=== PATIENT | male | born 1975 | race Caucasian/White ===

== ENCOUNTER 2020-02-27 22:29 | Emergency (ER) | payer OTHER ==
[~2020-02-27 22:29] MED LIST: ACETAMINOPHEN500 M1 PO; ADMELOG100 UNIT/1 SC; ASPIRIN325 MG PO; BACLOFEN 20MG T20 MG PO; CHLORTHALIDONE25 MG PO; CIPRO500 MG PO; FENOFIBRATE200 MG PO; GABAPENTIN600 MG PO; HUMALOG 75100 UNIT/M SC; HYDRALAZINE25 MG PO; HYDROCODON-ACE1 EAC2 PO; KEFLEX250 MG PO; LASIX40 MG PO; LIPITOR40 MG PO; LOPRESSOR50 MG PO; LOVAZA1 GM PO; NAPROXEN500 MG PO; NEURONTIN300 MG PO; NORCO 5-325 TA1 EACH PO; OCUFLOX5 ML EARRT; PEPCID AC20 MG PO; PERCOCET 10/321 EACH PO; PERCOCET 5-3251 EACH PO; PHENERGAN25 M1 PO; PLAVIX75 MG PO; PRINIVIL20 MG PO; PROTONIX 40MG T40 MG PO; TETRACYCLINE H500 MG PO; TRESIBA FL200 UNIT/1 SC; TRESIBA100 UNIT/1 SC; TRULICITY1.5 MG/0.5 SC; VITAMIN D3125 MC1 PO; ZOFRAN4 M1 PO; ZOFRAN8 MG PO
[2020-02-28 00:12] LABS: EOSINOPHIL 2.2 % (0-5); HCT 29.2 % (42.0-52.0); MCH 29.1 pg (25.0-31.0); MCHC 30.8 g/dL (32.0-36.0); MCV 94.5 fL (78.0-100.0); MONOCYTE 8.6 % (0-12); MPV 9.2 fL (6.0-9.5); NEUTROPHIL 65.9 % (41-80); NRBC 0; PLT 234 K/uL (150-400); RBC 3.09 M/uL (4.70-6.00); RDW 17.7 % (11.5-14.0); WBC 3.1 K/uL (4.0-10.5)
[2020-02-28 00:38] LABS: ALBUMIN 2.5 g/dL (3.4-5.0); BILIRUBIN - TOTAL 0.3 mg/dL (0.2-1.0); BUN/CREAT RATIO (CALC) 19.7 RATIO; CREATININE 1.32 mg/dL (0.67-1.17); GLOBULIN (CALCULATION) 3.4 g/dL; POTASSIUM 4.7 mmol/L (3.5-5.1); TOTAL PROTEIN 5.9 g/dL (6.4-8.2)
[2020-02-28] MEDS ORDERED: ALDACTONE50 MG PO (01:57)
== END 2020-02-28 02:05 | disposition home or self-care (01) ==
LOC: FER 22:29
PROVIDERS: Emergency Medicine
DX: R60.0 Localized edema (principal); I12.9 Hypertensive chronic kidney disease with stage 1 through stage 4 chronic kidney disease, or unspecified chronic kidney disease; E11.22 Type 2 diabetes mellitus with diabetic chronic kidney disease; N18.30 Chronic kidney disease, stage 3 unspecified; Z79.01 Long term (current) use of anticoagulants; Z79.899 Other long term (current) drug therapy; Z79.02 Long term (current) use of antithrombotics/antiplatelets; Z79.82 Long term (current) use of aspirin
CPT/HCPCS: 36415; 71250; 80053; 83880; 84443; 85025

== ENCOUNTER 2020-04-09 07:18 | Emergency (ER) | payer OTHER ==
[~2020-04-09 07:18] MED LIST changes: +ALDACTONE50 MG PO
[2020-04-09 08:39] LABS: BASOPHIL 1.5 % (0-2); EOSINOPHIL 2.3 % (0-5); HCT 32.2 % (42.0-52.0); HGB 10.2 g/dl (13.2-18.0); LYMPHOCYTE 27.5 % (15-48); MCH 31.6 pg (25.0-31.0); MCHC 31.7 g/dL (32.0-36.0); MCV 99.7 fL (78.0-100.0); MPV 9.6 fL (6.0-9.5); NEUTROPHIL 59.9 % (41-80); NRBC 0; PLT 157 K/uL (150-400); RBC 3.23 M/uL (4.70-6.00); RDW 15.6 % (11.5-14.0); WBC 2.6 K/uL (4.0-10.5)
[2020-04-09 09:28] LABS: BILIRUBIN NEGATIVE (NEGATIVE); BLOOD NEGATIVE Ery/uL (NEGATIVE); CLARITY CLEAR (CLEAR); COLOR YELLOW (YELLOW); GLUCOSE (U) TRACE mg/dL (NORMAL); LEUKOCYTES NEGATIVE Leu/uL (NEGATIVE); NITRITE NEGATIVE (NEGATIVE); PROTEIN NEGATIVE (NEGATIVE); SPECIFIC GRAVITY 1.015 (1.001-1.030); UROBILINOGEN 0.2 mg/dL (0.2-1.0)
[2020-04-09 09:31] LABS: ALBUMIN 2.6 g/dL (3.4-5.0); BILIRUBIN - TOTAL 0.3 mg/dL (0.2-1.0); BUN/CREAT RATIO (CALC) 33.3 RATIO; CREATININE 1.53 mg/dL (0.67-1.17); GLOBULIN (CALCULATION) 2.6 g/dL; POTASSIUM 3.3 mmol/L (3.5-5.1); TOTAL PROTEIN 5.2 g/dL (6.4-8.2)
[2020-04-09] MEDS ORDERED: HYDROCODON-ACE1 EAC2 PO (12:16)
== END 2020-04-09 12:49 | disposition home or self-care (01) ==
LOC: FER 07:18
PROVIDERS: Emergency Medicine
DX: E11.649 Type 2 diabetes mellitus with hypoglycemia without coma (principal); I48.91 Unspecified atrial fibrillation; I49.3 Ventricular premature depolarization; R60.0 Localized edema; E66.01 Morbid (severe) obesity due to excess calories; E11.22 Type 2 diabetes mellitus with diabetic chronic kidney disease; N18.9 Chronic kidney disease, unspecified; I12.9 Hypertensive chronic kidney disease with stage 1 through stage 4 chronic kidney disease, or unspecified chronic kidney disease; Z86.718 Personal history of other venous thrombosis and embolism; Z87.891 Personal history of nicotine dependence; Z91.048 Other nonmedicinal substance allergy status; Z95.5 Presence of coronary angioplasty implant and graft
CPT/HCPCS: 36415; 80053; 81003; 83605; 85025; 93005; J2405; J7030

== ENCOUNTER 2020-04-19 00:12 | Inpatient (IN) | payer OTHER ==
[2020-04-19 02:10] LABS: BASOPHIL 0.9 % (0-2); EOSINOPHIL 1.5 % (0-5); HGB 10.5 g/dl (13.2-18.0); LYMPHOCYTE 16.8 % (15-48); MCH 31.2 pg (25.0-31.0); MCHC 31.8 g/dL (32.0-36.0); MCV 97.9 fL (78.0-100.0); MONOCYTE 8.3 % (0-12); MPV 9.9 fL (6.0-9.5); NEUTROPHIL 72.2 % (41-80); NRBC 0; PLT 175 K/uL (150-400); RBC 3.37 M/uL (4.70-6.00); RDW 14.9 % (11.5-14.0); WBC 3.3 K/uL (4.0-10.5)
[2020-04-19 02:13] LABS: INR 1.18 (0.9-1.2); PROTHROMBIN TIME 14.2 SECONDS (11.4-13.6)
[2020-04-19 02:22] LABS: BILIRUBIN NEGATIVE (NEGATIVE); BLOOD NEGATIVE Ery/uL (NEGATIVE); CLARITY CLEAR (CLEAR); COLOR YELLOW (YELLOW); GLUCOSE (U) 3+ mg/dL (NORMAL); LEUKOCYTES NEGATIVE Leu/uL (NEGATIVE); NITRITE NEGATIVE (NEGATIVE); PROTEIN NEGATIVE (NEGATIVE); SPECIFIC GRAVITY 1.015 (1.001-1.030); UROBILINOGEN 0.2 mg/dL (0.2-1.0)
[2020-04-19 02:32] LABS: ALBUMIN 3.2 g/dL (3.4-5.0); BILIRUBIN - TOTAL 0.6 mg/dL (0.2-1.0); BUN/CREAT RATIO (CALC) 24.1 RATIO; CREATININE 1.87 mg/dL (0.67-1.17); POTASSIUM 4.3 mmol/L (3.5-5.1); TOTAL PROTEIN 6.2 g/dL (6.4-8.2)
[2020-04-19 02:38] LABS: PRO-BNP 363 pg/mL (<125)
[2020-04-19 07:36] LABS: CHOLESTEROL 140 mg/dL (<200); HDL 57 mg/dL (40-60); LDL - DIRECT 47 mg/dL (<100); TRIGLYCERIDES 156 mg/dL (<150)
[2020-04-19] MEDS ORDERED: HYDROCODON-ACE1 EAC2 PO (09:37)
[2020-04-19] MEDS ORDERED: CREON DR 12,001 EACH PO (09:39)
[2020-04-19] MEDS ORDERED: ZUPLENZ4 MG PO (09:41)
[2020-04-19] MEDS ORDERED: TRESIBA FL200 UNIT/1 SC ×2 (09:43→09:44)
[2020-04-19] MEDS ORDERED: HUMALOG100 UNIT/3 SC (09:45)
[2020-04-19] MEDS ORDERED: TRULICITY1.5 MG/0.5 SC (09:47)
[2020-04-19] MEDS ORDERED: BACLOFEN 20MG T20 MG PO (09:48)
[2020-04-19] MEDS ORDERED: ASPIRIN325 MG PO (09:49)
[2020-04-19] MEDS ORDERED: TOPROL XL 50 MG50 MG PO (09:50)
[2020-04-19] MEDS ORDERED: GRALISE600 MG PO (09:53)
[2020-04-19] MEDS ORDERED: HCTZ25 MG PO (09:53)
[2020-04-20 05:38] LABS: BASOPHIL 0.6 % (0-2); EOSINOPHIL 2.2 % (0-5); HCT 30.5 % (42.0-52.0); HGB 9.5 g/dl (13.2-18.0); MCH 31.1 pg (25.0-31.0); MCHC 31.1 g/dL (32.0-36.0); MONOCYTE 13.3 % (0-12); MPV 9.6 fL (6.0-9.5); NEUTROPHIL 63.6 % (41-80); NRBC 0; PLT 154 K/uL (150-400); RBC 3.05 M/uL (4.70-6.00); WBC 3.2 K/uL (4.0-10.5)
[2020-04-20 05:55] LABS: ALBUMIN 2.4 g/dL (3.4-5.0); BILIRUBIN - TOTAL 0.5 mg/dL (0.2-1.0); BUN/CREAT RATIO (CALC) 21.4 RATIO; CREATININE 1.54 mg/dL (0.67-1.17); GLOBULIN (CALCULATION) 2.7 g/dL; POTASSIUM 4.7 mmol/L (3.5-5.1); TOTAL PROTEIN 5.1 g/dL (6.4-8.2)
[2020-04-21 03:46] LABS: BASOPHIL 1.5 % (0-2); EOSINOPHIL 2.6 % (0-5); HCT 32.1 % (42.0-52.0); HGB 9.7 g/dl (13.2-18.0); LYMPHOCYTE 32.8 % (15-48); MCH 29.9 pg (25.0-31.0); MCHC 30.2 g/dL (32.0-36.0); MCV 99.1 fL (78.0-100.0); MONOCYTE 13.8 % (0-12); MPV 9.6 fL (6.0-9.5); NEUTROPHIL 48.6 % (41-80); NRBC 0; PLT 150 K/uL (150-400); RBC 3.24 M/uL (4.70-6.00); RDW 14.7 % (11.5-14.0); WBC 2.7 K/uL (4.0-10.5)
[2020-04-21 04:09] LABS: ALBUMIN 2.6 g/dL (3.4-5.0); BILIRUBIN - TOTAL 0.4 mg/dL (0.2-1.0); BUN/CREAT RATIO (CALC) 17.5 RATIO; CREATININE 1.54 mg/dL (0.67-1.17); GLOBULIN (CALCULATION) 2.9 g/dL; POTASSIUM 4.3 mmol/L (3.5-5.1); TOTAL PROTEIN 5.5 g/dL (6.4-8.2)
[2020-04-21] MEDS ORDERED: DILAUDID2 MG PO (08:30)
--- NOTE | 2020-04-21 12:28 | NUR ---
DISCUSSED DISCHARGE INSTRUCTIONS WITH PATIENT. IN STABLE CONDITION. PATIENT BEING DISCHARGED HOME. IV REMOVED PRIOR TO DISCHARGE
== END 2020-04-21 12:25 | disposition home or self-care (01) | DRG 439 ==
LOC: FER 00:12 → FMS 05:52
PROVIDERS: Allergy & Immunology Allergy; Emergency Medicine; Nurse Practitioner; ADMIT Internal Medicine
DX: K85.90 Acute pancreatitis without necrosis or infection, unspecified (principal); I82.890 Acute embolism and thrombosis of other specified veins; K74.60 Unspecified cirrhosis of liver; Z20.822 Contact with and (suspected) exposure to COVID-19; E78.5 Hyperlipidemia, unspecified; G40.909 Epilepsy, unspecified, not intractable, without status epilepticus; K21.9 Gastro-esophageal reflux disease without esophagitis; I12.9 Hypertensive chronic kidney disease with stage 1 through stage 4 chronic kidney disease, or unspecified chronic kidney disease; K40.90 Unilateral inguinal hernia, without obstruction or gangrene, not specified as recurrent; L73.2 Hidradenitis suppurativa; E66.01 Morbid (severe) obesity due to excess calories; E11.22 Type 2 diabetes mellitus with diabetic chronic kidney disease; E11.40 Type 2 diabetes mellitus with diabetic neuropathy, unspecified; N18.30 Chronic kidney disease, stage 3 unspecified; Z87.891 Personal history of nicotine dependence; Z90.49 Acquired absence of other specified parts of digestive tract; Z98.890 Other specified postprocedural states; Z86.718 Personal history of other venous thrombosis and embolism; Z79.01 Long term (current) use of anticoagulants; E11.649 Type 2 diabetes mellitus with hypoglycemia without coma; Z68.38 Body mass index [BMI] 38.0-38.9, adult
CPT/HCPCS: 36415; 80053; 80061; 81003; 82962; 83690; 83880; 84145; 84484; 85025; 85610; 93005; J1170; J1644; J2405; J7030; J7121; U0002

== ENCOUNTER 2020-05-17 11:01 | Emergency (ER) | payer OTHER ==
[~2020-05-17 11:01] MED LIST changes: +CREON DR 12,001 EACH PO; +DILAUDID2 MG PO; +GRALISE600 MG PO; +HCTZ25 MG PO; +HUMALOG100 UNIT/3 SC; +TOPROL XL 50 MG50 MG PO; +ZUPLENZ4 MG PO
[2020-05-17 12:10] LABS: BILIRUBIN NEGATIVE (NEGATIVE); BLOOD NEGATIVE Ery/uL (NEGATIVE); CLARITY CLEAR (CLEAR); COLOR YELLOW (YELLOW); GLUCOSE (U) NORMAL (NORMAL); LEUKOCYTES NEGATIVE Leu/uL (NEGATIVE); NITRITE NEGATIVE (NEGATIVE); PROTEIN NEGATIVE (NEGATIVE); UROBILINOGEN 0.2 mg/dL (0.2-1.0); pH 5.5 (5.0-9.0)
[2020-05-17 12:28] LABS: BASOPHIL 0.4 % (0-2); EOSINOPHIL 0.3 % (0-5); HCT 34.8 % (42.0-52.0); HGB 11.3 g/dl (13.2-18.0); LYMPHOCYTE 18.3 % (15-48); MCH 30.1 pg (25.0-31.0); MCHC 32.5 g/dL (32.0-36.0); MCV 92.6 fL (78.0-100.0); MONOCYTE 7.7 % (0-12); MPV 9.6 fL (6.0-9.5); NEUTROPHIL 72.7 % (41-80); NRBC 0; PLT 221 K/uL (150-400); RBC 3.76 M/uL (4.70-6.00); RDW 13.9 % (11.5-14.0)
[2020-05-17 12:44] LABS: ALBUMIN 2.7 g/dL (3.4-5.0); BILIRUBIN - TOTAL 0.6 mg/dL (0.2-1.0); CREATININE 4.53 mg/dL (0.67-1.17); GLOBULIN (CALCULATION) 2.9 g/dL; POTASSIUM 5.5 mmol/L (3.5-5.1); TOTAL PROTEIN 5.6 g/dL (6.4-8.2)
[2020-05-17 16:14] LABS: CORONAVIRUS 2019 SARS-COV-2 NEGATIVE (NEGATIVE); INFLUENZA A NAA NEGATIVE (NEGATIVE)
== END 2020-05-17 16:40 | disposition other institution (70) ==
LOC: FER 11:01
PROVIDERS: Emergency Medicine
DX: E11.649 Type 2 diabetes mellitus with hypoglycemia without coma (principal); N17.9 Acute kidney failure, unspecified; E87.5 Hyperkalemia; E11.22 Type 2 diabetes mellitus with diabetic chronic kidney disease; N18.9 Chronic kidney disease, unspecified; Z90.49 Acquired absence of other specified parts of digestive tract; Z87.19 Personal history of other diseases of the digestive system; Z87.891 Personal history of nicotine dependence; Z88.3 Allergy status to other anti-infective agents; Z20.822 Contact with and (suspected) exposure to COVID-19
CPT/HCPCS: 36415; 70450; 80053; 81003; 83690; 84484; 85025; 93005; 96372; J7030; U0002

== ENCOUNTER 2020-06-27 21:19 | Inpatient (IN) | payer OTHER ==
[~2020-06-27] VITALS: Ht 185.4 cm; Wt 128.4 kg
[2020-06-28 01:22] LABS: BASOPHIL 0.7 % (0-2); EOSINOPHIL 0.9 % (0-5); HCT 38.5 % (42.0-52.0); HGB 12.9 g/dl (13.2-18.0); LYMPHOCYTE 11.3 % (15-48); MCH 29.8 pg (25.0-31.0); MCHC 33.5 g/dL (32.0-36.0); MCV 88.9 fL (78.0-100.0); MONOCYTE 5.8 % (0-12); MPV 10.4 fL (6.0-9.5); NEUTROPHIL 81.1 % (41-80); NRBC 0; PLT 173 K/uL (150-400); RBC 4.33 M/uL (4.70-6.00); RDW 14.5 % (11.5-14.0); WBC 4.3 K/uL (4.0-10.5)
[2020-06-28 01:44] LABS: LACTIC ACID 1.2 mmol/L (0.4-1.9)
[2020-06-28 01:49] LABS: ALBUMIN 3.1 g/dL (3.4-5.0); BILIRUBIN - TOTAL 0.7 mg/dL (0.2-1.0); BUN/CREAT RATIO (CALC) 27.1 RATIO; CREATININE 2.18 mg/dL (0.67-1.17); GLOBULIN (CALCULATION) 3.3 g/dL; POTASSIUM 5.4 mmol/L (3.5-5.1); TOTAL PROTEIN 6.4 g/dL (6.4-8.2)
[2020-06-28 05:01] LABS: CORONAVIRUS 2019 SARS-COV-2 NEGATIVE (NEGATIVE); INFLUENZA A NAA NEGATIVE (NEGATIVE)
[2020-06-28 07:03] LABS: BUN/CREAT RATIO (CALC) 26.8 RATIO; CREATININE 2.05 mg/dL (0.67-1.17); POTASSIUM 5.2 mmol/L (3.5-5.1)
[2020-06-28] MEDS ORDERED: PRINIVIL20 MG PO (08:40)
[2020-06-28] MEDS ORDERED: PLAVIX75 MG PO (08:42)
[2020-06-28] MEDS ORDERED: FENOFIBRATE160 MG PO (08:44)
[2020-06-28] MEDS ORDERED: FUROSEMIDE40 MG PO (09:27)
[2020-06-28] MEDS ORDERED: LIPITOR40 MG PO (09:28)
[2020-06-28] MEDS ORDERED: HYDRALAZINE25 MG PO (09:29)
[2020-06-28] MEDS ORDERED: CHLORTHALIDONE25 MG PO (09:31)
[2020-06-28] MEDS ORDERED: ADMELOG100 UNIT/1 SC (09:31)
[2020-06-28] MEDS ORDERED: TETRACYCLINE H250 MG PO (09:32)
[2020-06-28] MEDS ORDERED: PREVACID30 M1 PO (09:33)
[2020-06-28] MEDS ORDERED: TRESIBA100 UNIT/1 SC (13:22)
--- NOTE | 2020-06-28 13:49 | NUR ---
06/28/20 Mr. Simeon and his girlfriend, Mirela Harris, are living with the Ms. Harris's mother. The couple are both working at [employer] through a [employer], [employer], They continue to receive foodstamps. - Discharge is anticipated for 06/29. No needs are anticipated.
[2020-06-29 05:58] LABS: BASOPHIL 1.2 % (0-2); EOSINOPHIL 3.1 % (0-5); HCT 34.9 % (42.0-52.0); HGB 11.5 g/dl (13.2-18.0); LYMPHOCYTE 26.5 % (15-48); MCH 29.9 pg (25.0-31.0); MCV 90.9 fL (78.0-100.0); MONOCYTE 11.7 % (0-12); MPV 10.2 fL (6.0-9.5); NEUTROPHIL 57.2 % (41-80); NRBC 0; PLT 149 K/uL (150-400); RBC 3.84 M/uL (4.70-6.00); RDW 15.1 % (11.5-14.0); WBC 3.3 K/uL (4.0-10.5)
[2020-06-29 06:19] LABS: ALBUMIN 2.5 g/dL (3.4-5.0); BILIRUBIN - TOTAL 0.8 mg/dL (0.2-1.0); CREATININE 1.6 mg/dL (0.67-1.17); GLOBULIN (CALCULATION) 2.7 g/dL; POTASSIUM 4.7 mmol/L (3.5-5.1); TOTAL PROTEIN 5.2 g/dL (6.4-8.2)
--- NOTE | 2020-06-29 11:05 | NUR ---
1015 PT DISCHARGE ORDERS DISCUSSED WITH PT AT THIS TIME, PT VERBALIZED UNDERSTANDING. IV DC'D AT THIS TIME, TELE REMOVED. PT TRANSPORTED VIA WHEELCHAIR PER TECH.
== END 2020-06-29 10:28 | disposition home or self-care (01) | DRG 638 ==
LOC: FER 21:19 → FMS 06-28 03:55 → FICU 06-28 04:54 → FMS 06-28 12:01
PROVIDERS: Emergency Medicine Emergency Medical Services; Nurse Practitioner; ADMIT Internal Medicine
DX: E11.65 Type 2 diabetes mellitus with hyperglycemia (principal); N17.9 Acute kidney failure, unspecified; K86.1 Other chronic pancreatitis; K44.9 Diaphragmatic hernia without obstruction or gangrene; I12.9 Hypertensive chronic kidney disease with stage 1 through stage 4 chronic kidney disease, or unspecified chronic kidney disease; E11.43 Type 2 diabetes mellitus with diabetic autonomic (poly)neuropathy; K31.84 Gastroparesis; E78.5 Hyperlipidemia, unspecified; K21.9 Gastro-esophageal reflux disease without esophagitis; Z20.822 Contact with and (suspected) exposure to COVID-19; E66.01 Morbid (severe) obesity due to excess calories; N18.30 Chronic kidney disease, stage 3 unspecified; E11.51 Type 2 diabetes mellitus with diabetic peripheral angiopathy without gangrene; E11.22 Type 2 diabetes mellitus with diabetic chronic kidney disease; G40.909 Epilepsy, unspecified, not intractable, without status epilepticus; Z86.718 Personal history of other venous thrombosis and embolism; Z95.820 Peripheral vascular angioplasty status with implants and grafts; Z87.891 Personal history of nicotine dependence; Z90.49 Acquired absence of other specified parts of digestive tract; Z98.890 Other specified postprocedural states; Z88.8 Allergy status to other drugs, medicaments and biological substances
CPT/HCPCS: 36415; 74022; 80048; 80053; 82962; 83036; 83605; 83690; 84145; 85025; J1170; J1885; J2405; J7030; U0002

== ENCOUNTER 2020-07-30 13:10 | Emergency (ER) | payer OTHER ==
[~2020-07-30 13:10] MED LIST changes: +FENOFIBRATE160 MG PO; +FUROSEMIDE40 MG PO; +PREVACID30 M1 PO; +TETRACYCLINE H250 MG PO
[2020-07-30 15:13] LABS: BILIRUBIN NEGATIVE (NEGATIVE); BLOOD NEGATIVE Ery/uL (NEGATIVE); CLARITY CLEAR (CLEAR); COLOR YELLOW (YELLOW); GLUCOSE (U) 3+ mg/dL (NORMAL); LEUKOCYTES NEGATIVE Leu/uL (NEGATIVE); NITRITE NEGATIVE (NEGATIVE); PROTEIN NEGATIVE (NEGATIVE); UROBILINOGEN 0.2 mg/dL (0.2-1.0); pH 6.5 (5.0-9.0)
[2020-07-30 15:51] LABS: BASOPHIL 1.1 % (0-2); EOSINOPHIL 1.5 % (0-5); HCT 37.3 % (42.0-52.0); HGB 12.2 g/dl (13.2-18.0); LYMPHOCYTE 19.3 % (15-48); MCH 29.7 pg (25.0-31.0); MCHC 32.7 g/dL (32.0-36.0); MCV 90.8 fL (78.0-100.0); MPV 9.3 fL (6.0-9.5); NEUTROPHIL 69.7 % (41-80); NRBC 0; PLT 142 K/uL (150-400); RBC 4.11 M/uL (4.70-6.00); WBC 2.7 K/uL (4.0-10.5)
[2020-07-30 16:02] LABS: ALBUMIN 3.4 g/dL (3.4-5.0); BILIRUBIN - TOTAL 0.6 mg/dL (0.2-1.0); BUN/CREAT RATIO (CALC) 18.8 RATIO; CREATININE 1.17 mg/dL (0.67-1.17); GLOBULIN (CALCULATION) 2.8 g/dL; POTASSIUM 4.9 mmol/L (3.5-5.1); TOTAL PROTEIN 6.2 g/dL (6.4-8.2)
== END 2020-07-30 17:20 | disposition home or self-care (01) ==
LOC: FER 13:10
PROVIDERS: Nurse Practitioner Family
DX: E11.65 Type 2 diabetes mellitus with hyperglycemia (principal); M54.2 Cervicalgia; E11.22 Type 2 diabetes mellitus with diabetic chronic kidney disease; I12.9 Hypertensive chronic kidney disease with stage 1 through stage 4 chronic kidney disease, or unspecified chronic kidney disease; N18.30 Chronic kidney disease, stage 3 unspecified; Z87.891 Personal history of nicotine dependence; Z79.899 Other long term (current) drug therapy
CPT/HCPCS: 36415; 80053; 81003; 82150; 83690; 85025; 99284

== ENCOUNTER 2020-08-12 09:20 | Emergency (ER) | payer OTHER ==
[2020-08-12 12:04] LABS: BASOPHIL 0.8 % (0-2); EOSINOPHIL 1.6 % (0-5); HCT 43.4 % (42.0-52.0); HGB 14.4 g/dl (13.2-18.0); LYMPHOCYTE 23.9 % (15-48); MCH 29.7 pg (25.0-31.0); MCHC 33.2 g/dL (32.0-36.0); MCV 89.5 fL (78.0-100.0); MONOCYTE 10.1 % (0-12); MPV 9.7 fL (6.0-9.5); NEUTROPHIL 63.3 % (41-80); NRBC 0; PLT 181 K/uL (150-400); RBC 4.85 M/uL (4.70-6.00); RDW 15.1 % (11.5-14.0); WBC 3.8 K/uL (4.0-10.5)
[2020-08-12 12:28] LABS: ALBUMIN 3.6 g/dL (3.4-5.0); BILIRUBIN - TOTAL 0.6 mg/dL (0.2-1.0); BUN/CREAT RATIO (CALC) 22.8 RATIO; CREATININE 1.49 mg/dL (0.67-1.17); GLOBULIN (CALCULATION) 3.3 g/dL; POTASSIUM 4.2 mmol/L (3.5-5.1); TOTAL PROTEIN 6.9 g/dL (6.4-8.2)
[2020-08-12 12:39] LABS: BILIRUBIN NEGATIVE (NEGATIVE); BLOOD NEGATIVE Ery/uL (NEGATIVE); CLARITY CLEAR (CLEAR); COLOR YELLOW (YELLOW); GLUCOSE (U) NORMAL (NORMAL); LEUKOCYTES NEGATIVE Leu/uL (NEGATIVE); NITRITE NEGATIVE (NEGATIVE); PROTEIN NEGATIVE (NEGATIVE); UROBILINOGEN 0.2 mg/dL (0.2-1.0)
[2020-08-12 12:48] LABS: URINARY RBC RARE; URINARY WBC RARE
[2020-08-12] MEDS ORDERED: ROBAXIN750 MG PO (15:21)
[2020-08-12] MEDS ORDERED: ONDANSETRON ODT4 MG PO (15:21)
== END 2020-08-12 15:48 | disposition home or self-care (01) ==
LOC: FER 09:20
PROVIDERS: Physician Assistant
DX: S16.1XXA Strain of muscle, fascia and tendon at neck level, initial encounter (principal); R51.9 Headache, unspecified; R11.10 Vomiting, unspecified; E11.22 Type 2 diabetes mellitus with diabetic chronic kidney disease; E11.65 Type 2 diabetes mellitus with hyperglycemia; I12.9 Hypertensive chronic kidney disease with stage 1 through stage 4 chronic kidney disease, or unspecified chronic kidney disease; N18.9 Chronic kidney disease, unspecified; E11.40 Type 2 diabetes mellitus with diabetic neuropathy, unspecified; I10 Essential (primary) hypertension; E66.9 Obesity, unspecified; Z79.4 Long term (current) use of insulin; Z79.899 Other long term (current) drug therapy; Z79.02 Long term (current) use of antithrombotics/antiplatelets; Z79.82 Long term (current) use of aspirin; X58.XXXA Exposure to other specified factors, initial encounter
CPT/HCPCS: 36415; 80053; 81001; 85025; J1200; J2405; J7030

== ENCOUNTER 2020-08-15 14:37 | Emergency (ER) | payer OTHER ==
[~2020-08-15 14:37] MED LIST changes: +ONDANSETRON ODT4 MG PO; +ROBAXIN750 MG PO
[2020-08-15] MEDS ORDERED: ROBAXIN750 MG PO (19:44)
== END 2020-08-15 20:04 | disposition home or self-care (01) ==
LOC: FER 14:37
DX: S16.1XXA Strain of muscle, fascia and tendon at neck level, initial encounter (principal); E11.22 Type 2 diabetes mellitus with diabetic chronic kidney disease; N18.9 Chronic kidney disease, unspecified; Z88.8 Allergy status to other drugs, medicaments and biological substances; X58.XXXA Exposure to other specified factors, initial encounter
CPT/HCPCS: 72050

== ENCOUNTER 2020-09-10 01:17 | Day surgery (SDCO) | payer OTHER ==
[~2020-09-10] VITALS: Ht 185.4 cm; Wt 132.0 kg
[2020-09-10 01:57] LABS: HCT 41.2 % (42.0-52.0); HGB 13.1 g/dl (13.2-18.0); LYMPHOCYTE 23.2 % (15-48); MCH 29.6 pg (25.0-31.0); MCHC 31.8 g/dL (32.0-36.0); MCV 93.2 fL (78.0-100.0); MONOCYTE 8.3 % (0-12); MPV 10.1 fL (6.0-9.5); NEUTROPHIL 66.2 % (41-80); NRBC 0; PLT 130 K/uL (150-400); RBC 4.42 M/uL (4.70-6.00); RDW 15.4 % (11.5-14.0); WBC 2.9 K/uL (4.0-10.5)
[2020-09-10 02:12] LABS: LACTIC ACID 2.1 mmol/L (0.4-1.9)
[2020-09-10 02:13] LABS: ALBUMIN 2.9 g/dL (3.4-5.0); BILIRUBIN - TOTAL 0.7 mg/dL (0.2-1.0); BUN/CREAT RATIO (CALC) 23.2 RATIO; CREATININE 2.8 mg/dL (0.67-1.17); POTASSIUM 4.6 mmol/L (3.5-5.1); TOTAL PROTEIN 5.9 g/dL (6.4-8.2)
[2020-09-10 05:05] LABS: BUN/CREAT RATIO (CALC) 23.5 RATIO; CREATININE 2.68 mg/dL (0.67-1.17); POTASSIUM 4.5 mmol/L (3.5-5.1)
[2020-09-10 07:45] LABS: BUN/CREAT RATIO (CALC) 24.8 RATIO; CREATININE 2.62 mg/dL (0.67-1.17); POTASSIUM 4.1 mmol/L (3.5-5.1)
[2020-09-10] MEDS ORDERED: LEVEMIR VI100 UNITS/ SC (11:02)
[2020-09-10] MEDS ORDERED: GABAPENTIN600 MG PO (11:03)
[2020-09-10] MEDS ORDERED: LOVAZA1 GM PO (11:05)
[2020-09-10] MEDS ORDERED: VITAMIN D250 MCG PO (11:10)
[2020-09-10] MEDS ORDERED: FENOFIBRATE160 MG PO (11:12)
[2020-09-10] MEDS ORDERED: CREON 12,000 U1 EACH PO (11:16)
[2020-09-10] MEDS ORDERED: ADMELOG SO100 UNIT/1 SC (11:18)
[2020-09-10] MEDS ORDERED: LASIX40 MG PO (11:19)
[2020-09-10] MEDS ORDERED: TETRACYCLINE H500 MG PO (11:20)
[2020-09-10] MEDS ORDERED: PLAVIX75 MG PO (11:23)
[2020-09-10] MEDS ORDERED: PRINIVIL20 MG PO (11:24)
[2020-09-10] MEDS ORDERED: HYDRALAZINE25 MG PO (11:25)
[2020-09-10] MEDS ORDERED: PREVACID30 M1 PO (11:25)
[2020-09-10] MEDS ORDERED: TOPROL XL 50 MG50 MG PO (11:26)
[2020-09-10] MEDS ORDERED: ROBAXIN750 MG PO (11:27)
[2020-09-10] MEDS ORDERED: ONDANSETRON ODT4 MG PO (11:29)
--- NOTE | 2020-09-10 11:49 | NUR ---
ORDERS FOR OUTPATIENT STRESS TEST. PER OUTPATIENT RN PT MUST SEE OSVALDO MATA IN OFFICE BEFORE HIS INSURANCE WILL COVER THIS TEST. DR LIMA ISRAEL.
[2020-09-11 04:58] LABS: BUN/CREAT RATIO (CALC) 23.4 RATIO; CREATININE 2.14 mg/dL (0.67-1.17); POTASSIUM 4.5 mmol/L (3.5-5.1)
[2020-09-11 05:12] LABS: BASOPHIL 0.8 % (0-2); EOSINOPHIL 1.9 % (0-5); HCT 34.6 % (42.0-52.0); HGB 11.1 g/dl (13.2-18.0); MCH 29.3 pg (25.0-31.0); MCHC 32.1 g/dL (32.0-36.0); MCV 91.3 fL (78.0-100.0); MONOCYTE 12.4 % (0-12); MPV 10.1 fL (6.0-9.5); NEUTROPHIL 52.5 % (41-80); NRBC 0; PLT 106 K/uL (150-400); RBC 3.79 M/uL (4.70-6.00); RDW 15.6 % (11.5-14.0); WBC 2.7 K/uL (4.0-10.5)
--- NOTE | 2020-09-11 10:00 | NUR ---
PT STABLE AT TIME OF DISCHARGE, IV REMOVED AND DISCHARGE INSTRUCTIONS GIVEN AND INSTRUCTIONS GIVEN FOR DOCTORS APPOINTMENTS
== END 2020-09-11 09:48 | disposition home or self-care (01) ==
LOC: FER 01:17 → FICU 04:04
PROVIDERS: Emergency Medicine Emergency Medical Services; Internal Medicine; Nurse Practitioner; ADMIT Internal Medicine
DX: R07.89 Other chest pain (principal); E11.51 Type 2 diabetes mellitus with diabetic peripheral angiopathy without gangrene; R60.0 Localized edema; E78.5 Hyperlipidemia, unspecified; Z86.718 Personal history of other venous thrombosis and embolism; Z79.01 Long term (current) use of anticoagulants; K21.9 Gastro-esophageal reflux disease without esophagitis; Z95.828 Presence of other vascular implants and grafts; E11.22 Type 2 diabetes mellitus with diabetic chronic kidney disease; I12.9 Hypertensive chronic kidney disease with stage 1 through stage 4 chronic kidney disease, or unspecified chronic kidney disease; N18.30 Chronic kidney disease, stage 3 unspecified; E11.40 Type 2 diabetes mellitus with diabetic neuropathy, unspecified; Z87.891 Personal history of nicotine dependence; N17.9 Acute kidney failure, unspecified; E11.65 Type 2 diabetes mellitus with hyperglycemia; K86.1 Other chronic pancreatitis; Z88.8 Allergy status to other drugs, medicaments and biological substances; Z79.82 Long term (current) use of aspirin; Z79.4 Long term (current) use of insulin; F32.9 Major depressive disorder, single episode, unspecified; E86.0 Dehydration; Z20.822 Contact with and (suspected) exposure to COVID-19
CPT/HCPCS: 36415; 71045; 80048; 80053; 80061; 82150; 82962; 83036; 83605; 83690; 84484; 85025; 93005; C9113; G0378; J1170; J1650; J2405; J7030; U0002

== ENCOUNTER 2020-10-07 12:15 | Emergency (ER) | payer OTHER ==
[~2020-10-07 12:15] MED LIST changes: +ADMELOG SO100 UNIT/1 SC; +CREON 12,000 U1 EACH PO; +LEVEMIR VI100 UNITS/ SC; +VITAMIN D250 MCG PO
[2020-10-07 13:51] LABS: BILIRUBIN NEGATIVE (NEGATIVE); BLOOD NEGATIVE Ery/uL (NEGATIVE); CLARITY CLEAR (CLEAR); COLOR YELLOW (YELLOW); GLUCOSE (U) NORMAL (NORMAL); LEUKOCYTES NEGATIVE Leu/uL (NEGATIVE); NITRITE NEGATIVE (NEGATIVE); PROTEIN NEGATIVE (NEGATIVE); UROBILINOGEN 0.2 mg/dL (0.2-1.0)
[2020-10-07 13:55] LABS: AMPHETAMINES NEGATIVE (NEGATIVE); BARBITURATES NEGATIVE (NEGATIVE); ECSTASY (MDMA) NEGATIVE (NEGATIVE); MARIJUANA (THC) NEGATIVE (NEGATIVE); METHADONE NEGATIVE (NEGATIVE); OPIATES POSITIVE (NEGATIVE); OXYCODONE NEGATIVE (NEGATIVE)
[2020-10-07 14:12] LABS: BASOPHIL 1.3 % (0-2); EOSINOPHIL 0.9 % (0-5); HGB 13.4 g/dl (13.2-18.0); LYMPHOCYTE 17.4 % (15-48); MCHC 31.9 g/dL (32.0-36.0); MONOCYTE 7.9 % (0-12); MPV 9.6 fL (6.0-9.5); NEUTROPHIL 71.6 % (41-80); NRBC 0; PLT 191 K/uL (150-400); RBC 4.47 M/uL (4.70-6.00); RDW 15.8 % (11.5-14.0); WBC 3.2 K/uL (4.0-10.5)
[2020-10-07 14:32] LABS: ALBUMIN 3.1 g/dL (3.4-5.0); BILIRUBIN - TOTAL 0.5 mg/dL (0.2-1.0); BUN/CREAT RATIO (CALC) 21.7 RATIO; CREATININE 1.52 mg/dL (0.67-1.17); GLOBULIN (CALCULATION) 3.4 g/dL; POTASSIUM 4.7 mmol/L (3.5-5.1); TOTAL PROTEIN 6.5 g/dL (6.4-8.2)
[2020-10-07] MEDS ORDERED: NORCO 5-325 TA1 EACH PO (17:57)
== END 2020-10-07 18:10 | disposition home or self-care (01) ==
LOC: FER 12:15
PROVIDERS: Internal Medicine
DX: M54.2 Cervicalgia (principal); R07.89 Other chest pain; I10 Essential (primary) hypertension; I25.10 Atherosclerotic heart disease of native coronary artery without angina pectoris
CPT/HCPCS: 36415; 70450; 71045; 72125; 80053; 80305; 81003; 83690; 84484; 85025; 93005

== ENCOUNTER 2020-11-14 06:38 | Emergency (ER) | payer OTHER ==
[2020-11-14 06:58] LABS: EOSINOPHIL 0.7 % (0-5); HCT 42.9 % (42.0-52.0); HGB 14.2 g/dl (13.2-18.0); LYMPHOCYTE 18.4 % (15-48); MCHC 33.1 g/dL (32.0-36.0); MCV 93.7 fL (78.0-100.0); MONOCYTE 7.2 % (0-12); MPV 9.2 fL (6.0-9.5); NRBC 0; PLT 214 K/uL (150-400); RBC 4.58 M/uL (4.70-6.00); RDW 13.8 % (11.5-14.0); WBC 4.2 K/uL (4.0-10.5)
[2020-11-14 07:28] LABS: BILIRUBIN - TOTAL 0.6 mg/dL (0.2-1.0); BUN/CREAT RATIO (CALC) 16.1 RATIO; CREATININE 2.23 mg/dL (0.67-1.17); GLOBULIN (CALCULATION) 2.8 g/dL; POTASSIUM 4.5 mmol/L (3.5-5.1); TOTAL PROTEIN 5.8 g/dL (6.4-8.2)
[2020-11-14 08:39] LABS: BILIRUBIN NEGATIVE (NEGATIVE); BLOOD NEGATIVE Ery/uL (NEGATIVE); CLARITY CLEAR (CLEAR); COLOR YELLOW (YELLOW); GLUCOSE (U) 3+ mg/dL (NORMAL); LEUKOCYTES NEGATIVE Leu/uL (NEGATIVE); NITRITE NEGATIVE (NEGATIVE); PROTEIN NEGATIVE (NEGATIVE); UROBILINOGEN 0.2 mg/dL (0.2-1.0); pH 5.5 (5.0-9.0)
[2020-11-14 08:44] LABS: AMPHETAMINES NEGATIVE (NEGATIVE); BARBITURATES NEGATIVE (NEGATIVE); ECSTASY (MDMA) NEGATIVE (NEGATIVE); MARIJUANA (THC) NEGATIVE (NEGATIVE); METHADONE NEGATIVE (NEGATIVE); OPIATES NEGATIVE (NEGATIVE); OXYCODONE NEGATIVE (NEGATIVE)
[2020-11-14 12:30] LABS: BUN/CREAT RATIO (CALC) 17.4 RATIO; CREATININE 1.95 mg/dL (0.67-1.17)
== END 2020-11-14 15:35 | disposition home or self-care (01) ==
LOC: FER 06:38
PROVIDERS: Emergency Medicine; Internal Medicine
DX: E11.22 Type 2 diabetes mellitus with diabetic chronic kidney disease (principal); E11.65 Type 2 diabetes mellitus with hyperglycemia; N18.9 Chronic kidney disease, unspecified; N17.9 Acute kidney failure, unspecified; E86.0 Dehydration; Z88.3 Allergy status to other anti-infective agents; Z20.822 Contact with and (suspected) exposure to COVID-19
CPT/HCPCS: 36415; 36600; 71045; 80048; 80053; 80305; 81003; 82009; 82803; 83690; 83880; 84484; 85025; 93005; J7030; U0002

== ENCOUNTER 2021-04-19 16:56 | Emergency (ER) | payer OTHER ==
[2021-04-19] MEDS ORDERED: AMOX TR-K CLV1 EAC4 PO (17:58)
== END 2021-04-19 18:06 | disposition home or self-care (01) ==
LOC: FER 16:56
DX: L03.114 Cellulitis of left upper limb (principal); I10 Essential (primary) hypertension; E11.9 Type 2 diabetes mellitus without complications; Z79.4 Long term (current) use of insulin; Z79.84 Long term (current) use of oral hypoglycemic drugs; Z88.3 Allergy status to other anti-infective agents; Z91.048 Other nonmedicinal substance allergy status
CPT/HCPCS: 99283

== ENCOUNTER 2021-08-26 18:32 | Emergency (ER) | payer OTHER ==
[~2021-08-26 18:32] MED LIST changes: +AMOX TR-K CLV1 EAC4 PO
[2021-08-26] MEDS ORDERED: CEPHALEXIN500 MG PO (21:32)
== END 2021-08-26 21:51 | disposition home or self-care (01) ==
LOC: FER 18:32
DX: S61.211A Laceration without foreign body of left index finger without damage to nail, initial encounter (principal); I10 Essential (primary) hypertension; E11.9 Type 2 diabetes mellitus without complications; Z23 Encounter for immunization; Z88.8 Allergy status to other drugs, medicaments and biological substances; W26.0XXA Contact with knife, initial encounter; Y92.009 Unspecified place in unspecified non-institutional (private) residence as the place of occurrence of the external cause
CPT/HCPCS: 90471; 90715

== ENCOUNTER 2021-09-08 22:12 | Emergency (ER) | payer OTHER ==
[~2021-09-08 22:12] MED LIST changes: +CEPHALEXIN500 MG PO
[2021-09-08 23:52] LABS: BASOPHIL 0.8 % (0-2); EOSINOPHIL 2.4 % (0-5); HCT 37.8 % (42.0-52.0); HGB 12.6 g/dl (13.2-18.0); LYMPHOCYTE 21.5 % (15-48); MCH 28.5 pg (25.0-31.0); MCHC 33.3 g/dL (32.0-36.0); MCV 85.5 fL (78.0-100.0); MPV 10.5 fL (6.0-9.5); NEUTROPHIL 61.7 % (41-80); NRBC 0; PLT 232 K/uL (150-400); RBC 4.42 M/uL (4.70-6.00); RDW 14.6 % (11.5-14.0); WBC 9.3 K/uL (4.0-10.5)
[2021-09-09 00:06] LABS: BILIRUBIN - TOTAL 0.5 mg/dL (0.2-1.0); BUN/CREAT RATIO (CALC) 28.2 RATIO; CREATININE 2.73 mg/dL (0.67-1.17); GLOBULIN (CALCULATION) 2.9 g/dL; TOTAL PROTEIN 6.9 g/dL (6.4-8.2)
[2021-09-09 00:22] LABS: CORONAVIRUS 2019 SARS-COV-2 NEGATIVE (NEGATIVE); INFLUENZA A NAA NEGATIVE (NEGATIVE)
== END 2021-09-09 01:57 | disposition home or self-care (01) ==
LOC: FER 22:12
PROVIDERS: Emergency Medicine
DX: I95.1 Orthostatic hypotension (principal); E11.22 Type 2 diabetes mellitus with diabetic chronic kidney disease; I12.9 Hypertensive chronic kidney disease with stage 1 through stage 4 chronic kidney disease, or unspecified chronic kidney disease; N18.30 Chronic kidney disease, stage 3 unspecified; Z88.3 Allergy status to other anti-infective agents; Z79.4 Long term (current) use of insulin
CPT/HCPCS: 36415; 80053; 84484; 85025; 93005; J1885; J2405; J7030; U0002

== ENCOUNTER 2021-10-11 17:45 | Emergency (ER) | payer OTHER ==
[2021-10-11 18:44] LABS: BASOPHIL 0.7 % (0-2); EOSINOPHIL 1.1 % (0-5); HCT 45.7 % (42.0-52.0); HGB 15.2 g/dl (13.2-18.0); LYMPHOCYTE 16.1 % (15-48); MCH 27.7 pg (25.0-31.0); MCHC 33.3 g/dL (32.0-36.0); MCV 83.2 fL (78.0-100.0); MONOCYTE 7.5 % (0-12); MPV 11.2 fL (6.0-9.5); NEUTROPHIL 74.2 % (41-80); NRBC 0; PLT 223 K/uL (150-400); RBC 5.49 M/uL (4.70-6.00); RDW 14.1 % (11.5-14.0); WBC 4.5 K/uL (4.0-10.5)
[2021-10-11 19:01] LABS: BUN/CREAT RATIO (CALC) 20.3 RATIO; CREATININE 1.72 mg/dL (0.67-1.17); POTASSIUM 4.6 mmol/L (3.5-5.1)
[2021-10-11 21:44] LABS: BILIRUBIN NEGATIVE (NEGATIVE); BLOOD NEGATIVE Ery/uL (NEGATIVE); CLARITY CLEAR (CLEAR); COLOR YELLOW (YELLOW); GLUCOSE (U) 3+ mg/dL (NORMAL); LEUKOCYTES NEGATIVE Leu/uL (NEGATIVE); NITRITE NEGATIVE (NEGATIVE); PROTEIN 2+ mg/dL (NEGATIVE); UROBILINOGEN 0.2 mg/dL (0.2-1.0)
[2021-10-11 21:47] LABS: AMORPHOUS URATES CRYSTALS TRACE; SQUAMOUS EPITHELIAL CELLS RARE
[2021-10-12] MEDS ORDERED: ULTRA-LIGHT RO1 EACH XX (16:24)
== END 2021-10-11 22:42 | disposition home or self-care (01) ==
LOC: FER 17:45
PROVIDERS: Nurse Practitioner Family
DX: M54.2 Cervicalgia (principal); E11.65 Type 2 diabetes mellitus with hyperglycemia; E11.22 Type 2 diabetes mellitus with diabetic chronic kidney disease; N18.30 Chronic kidney disease, stage 3 unspecified; E11.40 Type 2 diabetes mellitus with diabetic neuropathy, unspecified; Z86.16 Personal history of COVID-19; Z88.8 Allergy status to other drugs, medicaments and biological substances; Z91.09 Other allergy status, other than to drugs and biological substances; W19.XXXA Unspecified fall, initial encounter; Y93.01 Activity, walking, marching and hiking; Y92.009 Unspecified place in unspecified non-institutional (private) residence as the place of occurrence of the external cause
CPT/HCPCS: 36415; 36600; 70450; 72125; 80048; 81001; 82009; 82803; 84484; 85025; 93005; 96372; J7030

== ENCOUNTER 2021-10-12 10:30 | Emergency (ER) | payer OTHER ==
[2021-10-12 10:52] LABS: BASOPHIL 0.6 % (0-2); HCT 45.9 % (42.0-52.0); HGB 15.3 g/dl (13.2-18.0); MCH 27.8 pg (25.0-31.0); MCHC 33.3 g/dL (32.0-36.0); MCV 83.3 fL (78.0-100.0); MONOCYTE 8.6 % (0-12); MPV 10.7 fL (6.0-9.5); NEUTROPHIL 69.4 % (41-80); NRBC 0; PLT 189 K/uL (150-400); RBC 5.51 M/uL (4.70-6.00); RDW 14.1 % (11.5-14.0)
[2021-10-12 11:46] LABS: ALBUMIN 3.3 g/dL (3.4-5.0); BILIRUBIN - TOTAL 0.5 mg/dL (0.2-1.0); CREATININE 1.4 mg/dL (0.67-1.17); GLOBULIN (CALCULATION) 3.1 g/dL; POTASSIUM 4.3 mmol/L (3.5-5.1); TOTAL PROTEIN 6.4 g/dL (6.4-8.2)
[2021-10-12 12:54] LABS: BILIRUBIN NEGATIVE (NEGATIVE); BLOOD NEGATIVE Ery/uL (NEGATIVE); CLARITY CLEAR (CLEAR); COLOR YELLOW (YELLOW); GLUCOSE (U) 1+ mg/dL (NORMAL); LEUKOCYTES NEGATIVE Leu/uL (NEGATIVE); NITRITE NEGATIVE (NEGATIVE); PROTEIN 3+ mg/dL (NEGATIVE); UROBILINOGEN 0.2 mg/dL (0.2-1.0)
[2021-10-12] MEDS ORDERED: ULTRA-LIGHT RO1 EACH XX (16:24)
== END 2021-10-12 16:38 | disposition home or self-care (01) ==
LOC: FER 10:30
PROVIDERS: Emergency Medicine
DX: K52.9 Noninfective gastroenteritis and colitis, unspecified (principal); R53.1 Weakness; E11.9 Type 2 diabetes mellitus without complications; Z87.891 Personal history of nicotine dependence; Z88.8 Allergy status to other drugs, medicaments and biological substances; Z91.09 Other allergy status, other than to drugs and biological substances
CPT/HCPCS: 36415; 80053; 81001; 83605; 83880; 84484; 85025; 85379; 93005; G0480; J7030